=== PATIENT | male | born 1950 | race Caucasian/White ===

== ENCOUNTER 2016-11-23 00:30 | Emergency (ER) | payer OTHER, BC ==
--- NOTE | 2016-11-23 00:32 | PDOC ---
History of Present Illness - General Chief Complaint: Hematuria Stated Complaint: URINATING BLOOD X ONE Time Seen by Provider: 11/23/16 00:32 History Source: Patient Exam Limitations: No Limitations - History of Present Illness Initial Comments: This is a 65-year-old male who comes in complaining of urinating blood. Patient said that that his urine was reddish 1 time and then became dark brown- colored. Patient denied any flank pain and abdominal pain. Patient denied any recent illness. Patient denied any fever chills nausea vomiting or diarrhea. Patient denied any rashes. Patient denies any travel outside of the country. Patient has history of hypertension for which she takes by systolic otherwise is healthy. PAST MEDICAL HISTORY: no significant history PAST SURGICAL HISTORY: no significant history FAMILY HISTORY: no pertinant history SOCIAL HISTORY: Pt lives with family and is employed. MEDICATIONS: reviewed ALLERGIES: As per nursing notes Review of Systems General: No fevers or chills, no weakness, no weight loss HEENT: No change in vision. No sore throat,. No ear pain CardioVascular: No chest pain or shortness of breath Respiratory:No cough, or wheezing. Gastrointestinal: no nausea, vomitting, diarrhea or constipation, No rectal bleeding Genitourinary: No dysuria, hematuria, or frequency Musculoskeletal: No joint or muscle pain or swelling Neurologic: No headache, vertigo, dizziness or loss of consciousness Psychiatric: nor depression Skin: No rashes or easy bruising Endocrine: no increased thirst or abnormal weight change Allergic: no skin or latex allergy All other systems reviewed and normal Exam: General: Well-nourished well-developed individual, no acute distress HEENT: Throat: Normal, tonsils normal, no erythema or exudate Neck: Supple, no meningeal signs, no lymphadenopathy Eyes::Pupils equal reactive and round, extraocular motion intact Chest: Nontender to palpation Cardiac: S1-S2 normal, regular rate and rhythm, no murmurs rubs or gallops Respiratory: Lungs clear to auscultation bilateral Abdomen: Soft, nondistended, normal bowel sounds, nontender to palpation diffusely Extremities: Warm, dry, no cyanosis, clubbing, or edema Skin: No rashes Neuro: Alert and oriented x3, nonfocal exam, grossly intact, normal gait Psych: Normal mood and affect Assessment and plan: This is a 65-year-old male with complaint of hematuria. Urinalysis shows 3+ blood with greater than 100 red cells per high-power field. Patient has a few whites white cells and a few bacteria but this does not appear to be a infected urine. Patient has a mildly elevated white count but no left shift. Patient is afebrile and denies any flank or abdominal pain. Patient had 3+ bilirubin in his urine however his liver enzymes and BUN and creatinine are all normal. Patient was given copies of his blood work and told he needs to follow-up with a urologist as well as his primary care doctor. Past History - Past Medical History Allergies/Adverse Reactions: Allergies Allergy/AdvReac Type Severity Reaction Status Date / Time No Known Allergies Allergy Verified 04/03/16 02:29 Home Medications: Ambulatory Orders Nebivolol HCl [Bystolic] 2.5 mg PO DAILY 11/23/16 HTN: Yes - Psycho/Social/Smoking Cessation Hx Anxiety: No Suicidal Ideation: No Smoking History: Never smoked Have you smoked in the past 12 months: No Hx Alcohol Use: No Drug/Substance Use Hx: No Substance Use Type: None ED Treatment Course - LABORATORY CBC & Chemistry Diagram: 11/23/16 00:46 11/23/16 00:46 *DC/Admit/Observation/Transfer Diagnosis at time of Disposition: Hematuria - Discharge Dispostion Disposition: HOME Condition at time of disposition: Stable Admit: No - Referrals Referrals: Dioni Velasquez MD [Primary Care Provider] - - Patient Instructions Additional Instructions: Return to the emergency department immediately with ANY new, persistent or worsening symptoms. Continue any medications as previously prescribed by your physician. You should follow up with your primary doctor as soon as possible regarding today's emergency department visit. . Please make sure your doctor reviews the results of your emergency evaluation. Thank you for coming to the Emergency Department today for your care. It was a pleasure to see you today. Please note that your evaluation is INCOMPLETE until you follow-up with your doctor.
[2016-11-23 00:49] VITALS: BP 158/84; PULSE 80; TEMP 97.9; BMI 43.3
[2016-11-23 01:16] LABS: BASOPHIL 0.4 % (0-2.0); MCH 28.4 pg (25.7-33.7); MEAN CELL VOLUME 86.2 fl (80-96); MEAN PLT VOLUME 7.7 fl (7.5-11.1); NEUTROPHILS 70.3 % (42.8-82.8); PLATELET COUNT 260 K/MM3 (134-434); RDW 13.7 % (11.9-15.9); WHITE BLOOD COUNT 12.6 K/mm3 (4.0-10.0)
[2016-11-23 01:38] LABS: ALBUMIN 3.7 g/dl (3.4-5.0); ANION GAP 10 (8-16); BILIRUBIN,TOTAL 0.5 mg/dL (0.2-1.0); CALCIUM 8.7 mg/dL (8.5-10.1); CO2 25 mmol/L (21-32); CREATININE 0.7 mg/dL (0.7-1.3); GLUCOSE,RANDOM 117 mg/dL (74-106); SGOT/AST 22 U/L (15-37); SGPT/ALT 36 U/L (12-78); TOT PROT 7.6 g/dl (6.4-8.2)
[2016-11-23 01:39] LABS: ALK PHOS 80 U/L (45-117)
[2016-11-23 01:40] LABS: URINE APPEARANCE TURBID; URINE BILIRUBIN 3+ (NEGATIVE); URINE BLOOD 3+ (NEGATIVE); URINE COLOR BROWN; URINE GLUCOSE (UA) NEGATIVE (NEGATIVE); URINE KETONE 1+ (NEGATIVE)
[2016-11-23 01:41] LABS: URINE LEUK ESTERASE 1+ (NEGATIVE); URINE NITRITE POSITIVE (NEGATIVE); URINE PROTEIN 3+ (NEGATIVE); URINE UROBILINOGEN 2.0 E.U/dl E.U./dl (0.2-1.0)
[2016-11-23 02:15] LABS: URINE BACTERIA FEW /hpf (NONE SEEN); URINE RBC >100 /hpf (0-3)
== END 2016-11-23 02:06 | disposition home or self-care (01) ==
LOC: FER 00:30
DX: R31.9 Hematuria, unspecified (principal); I10 Essential (primary) hypertension
CPT/HCPCS: 36415; 80053; 81003; 81015; 82553; 85025; 99282-25

== ENCOUNTER 2023-08-27 08:56 | Emergency (ER) | payer OTHER, BC ==
[2023-08-27 09:20] VITALS: BP 155/94; PULSE 84; RESP 18; TEMP 98.8; BMI 36.9
[2023-08-27] MEDS ORDERED: ACETAMINOPHEN 325 MG TABLET (FP) ONE (09:30)
[2023-08-27] MEDS: ACETAMINOPHEN 325 MG TABLET (FP) PO ONE (09:50)
== END 2023-08-27 10:20 | disposition home or self-care (01) ==
LOC: FER 08:56
DX: S49.92XA Unspecified injury of left shoulder and upper arm, initial encounter (principal); X58.XXXA Exposure to other specified factors, initial encounter
CPT/HCPCS: 71046-TC-FY; 73030-TC-LT-FY; 93005; 99284-25